=== PATIENT | female | born 1940 | race Caucasian/White ===

== ENCOUNTER 2022-04-05 02:13 | Observation (INO) | payer MEDICARE, SELFPAY ==
[2022-04-05] VITALS (10 sets, daily range): BP systolic 108–153; BP diastolic 58–85; PULSE 65–110; RESP 20–26; TEMP 36.3–36.9; O2SAT 93–97; BMI 14.7
--- NOTE | 2022-04-05 02:24 | PC.NURSE ---
PT ARRIVED TO FLOOR VIA STRETCHER @ [id number].
--- NOTE | 2022-04-05 02:58 | XR_ITS ---
PROCEDURE INFORMATION: Exam: XR Chest Exam date and time: 04/05/2022 3:20 AM Age: 82 years old Clinical indication: Cough; Sternal or substernal pain; Additional info: Chest pain, cough TECHNIQUE: Imaging protocol: Radiologic exam of the chest. Views: 1 view. COMPARISON: No relevant prior studies available. FINDINGS: Lungs: Well aerated with no evidence of consolidations. Emphysematous changes and chronic bilateral interstitial thickening. Subcentimeter calcified granuloma on the lateral aspect of the right lung base. Pleural spaces: No evidence of effusions or pneumothorax. Heart/Mediastinum: The cardiomediastinal silhouette is normal in size and configuration. There is no evidence of cardiomegaly. Bones/joints: Intact. IMPRESSION: 1. No radiographic evidence of an acute pulmonary process. 2. Emphysematous changes and chronic bilateral interstitial thickening.
--- NOTE | 2022-04-05 03:04 | EXP.HP ---
History of Present Illness *Admission Date: 04/05/22 *Reason for visit:: Abnormal CTA chest, Chest pain *History of present illness: Ms. Barrera is a 82-year-old female with a past medical history that is positive for CHF, CAD, and Hypothyroidism. She presents to [facility] as a transfer from [facility] for Pulmonary evaluation for an abnormal CTA of the chest, per transferring facility CTA of the chest shows areas of pleural thickening, bronchiectasis, effusions and consolidations. Covid testing and Flu testing at the transferring facility were negative. EKG showed a Sinus Arrhythmia with no ST segment elevation or depression, Troponin x 2 at transferring facility were negative. The patient presented to the facility due to chest pain that started on the left substernal portion of the chest that was associated with a productive cough, the symptoms started the day prior to presentation. The transferring facility requested that she be sent for Pulmonary evaluation and recommendations. [facility] Medical History Congestive heart failure COPD (chronic obstructive pulmonary disease) History of chest pain History of left heart catheterization (LHC) History of left heart catheterization (LHC) Family History Other Family history of myocardial infarction Social History Smoking Status: Never smoker alcohol intake: never current occupational status: disabled Travel in the last 8 weeks: None marital status: number of children: 4 well-balanced diet: rarely or never Review of Systems Review of Systems Review of systems:: pertinent systems reviewed and negative unless documented below Constitutional Constitutional: Reports system reviewed and no additional complaints, except as documented Eyes Eyes: Reports system reviewed and no additional complaints, except as documented ENT Ears, Nose, Mouth, and Throat: Reports system reviewed and no additional complaints, except as documented *Cardiovascular Cardiovascular: Reports chest pain, Reports dyspnea and Reports dyspnea on exertion *Respiratory Respiratory: Reports cough, Reports dyspnea and Reports dyspnea on exertion *Gastrointestinal Gastrointestinal: Reports system reviewed and no additional complaints, except as documented *Genitourinary Genitourinary: Reports system reviewed and no additional complaints, except as documented *Musculoskeletal Musculoskeletal: Reports system reviewed and no additional complaints, except as documented Integumentary/Breasts Skin/Breast: Reports system reviewed and no additional complaints, except as documented *Neurologic Neurologic: Reports system reviewed and no additional complaints, except as documented Psychiatric Psychiatric: Reports system reviewed and no additional complaints, except as documented Endocrine Endocrine: Reports system reviewed and no additional complaints, except as documented Hematologic/Lymphatic Hematologic/Lymphatic: Reports system reviewed and no additional complaints, except as documented Allergic/Immunologic Allergic/Immunologic: Reports system reviewed and no additional complaints, except as documented Meds Home Medications and Allergies Home Medications Medication Instructions Recorded Confirmed Type aspirin 81 mg tablet 81 mg PO DAILY Heart failure 04/05/22 04/05/22 History digoxin 125 mcg (0.125 mg) tablet 125 mcg PO DAILY Heart failure 04/05/22 04/05/22 History levothyroxine 50 mcg tablet 50 mcg PO DAILY hypothyroidism 04/05/22 04/05/22 History montelukast 10 mg tablet 10 mg PO DAILY allergies 04/05/22 04/05/22 History sacubitril 24 mg-valsartan 26 mg 1 tab PO BID Heart failure 04/05/22 04/05/22 History tablet (Entresto) New Prescriptions to Start Prescriptions: Allergies Allergy/AdvReac Type Severity
[2022-04-05 03:33] LABS: Basophils # 0.1 K/mm3 (0-0.2); Basophils % 1.2 % (0.1-2.0); Eosinophils # 0.1 K/mm3 (0.0-0.4); Eosinophils % 1.2 % (0.1-12.0); Hematocrit 36.8 % (37.0-47.0); Hemoglobin 11.7 g/dL (12.2-16.2); Lymphocytes # 2.1 K/mm3 (0.7-4.5); Lymphocytes % 25.9 % (10-50); Mean Corpuscular HGB Conc 31.9 g/dL (31.8-35.4); Mean Corpuscular Hemoglobin 31.1 pg (27.0-31.2); Mean Corpuscular Volume 97.7 fl (81-99); Mean Platelet Volume 7.3 fl (7.4-10.4); Monocytes # 0.6 K/mm3 (0.1-1.0); Monocytes % 7.5 % (1.7-9.3); Neutrophils # 5.2 K/mm3 (1.8-7.8); Neutrophils % 64.1 % (37.0-80.0); Platelet Count 406 K/mm3 (142-424); Red Blood Count 3.77 M/mm3 (4.20-5.40); Red Cell Distribution Width 14.9 % (11.5-17.5); White Blood Count 8.2 K/mm3 (4.8-10.8)
[2022-04-05 03:35] LABS: Chloride 96 mmol/L (98-107); Sodium 132 mmol/L (136-145)
[2022-04-05 03:36] LABS: Potassium 4.3 mmoL/L (3.5-5.1)
[2022-04-05 03:38] LABS: Alanine Aminotransferase 19 U/L (12-78); Alkaline Phosphatase 109 U/L (38-126); Aspartate Amino Transferase 30 U/L (14-36); Bilirubin,Total 0.4 mg/dl (0.2-1.3); Blood Urea Nitrogen 12 mg/dl (7-17); Creatinine Clearance Estimated 25 mL/min (50-200); Estimated Glomerular Filt Rate 95 ml/min (>60); GFR (African American) 115 ML/MIN (>60)
[2022-04-05 03:39] LABS: Albumin Level 3.4 g/dl (3.5-5.0); Albumin/Globulin Ratio 1.1 (1.1-1.8); Anion Gap 11.3 mEq/L (5-15); Calcium 9.1 mg/dl (8.4-10.2); Carbon Dioxide 29 mmol/L (22.0-30.0); Glucose 92 mg/dl (74-100); Magnesium 1.7 mg/dl (1.6-2.3); Total Protein,Serum 6.4 g/dl (6.3-8.2)
[2022-04-05 03:51] LABS: Adenovirus,PCR Not Detected (NotDetected); Bordetella Pertussis Not Detected (NotDetected); Chlamydophila Pneumoniae, PCR Not Detected (NotDetected); Coronavirus 19, PCR Not Detected (NotDetected); Coronavirus 229E Not Detected (NotDetected); Coronavirus NL63 Not Detected (NotDetected); Coronavirus OC43 Not Detected (NotDetected); Coronovirus HKU1,PCR Not Detected (NotDetected); Human Metapneumovirus Not Detected (NotDetected); Influenza A, PCR Not Detected (NotDetected); Influenza AH1, 2009 Not Detected (NotDetected); Influenza AH1, PCR Not Detected (NotDetected); Influenza AH3,PCR Not Detected (NotDetected); Influenza B, PCR Not Detected (NotDetected); Mycoplasma Pneumoniae, PCR Not Detected (NotDetected); Parainfluenza 1, PCR Not Detected (NotDetected); Parainfluenza 2, PCR Not Detected (NotDetected); Parainfluenza 3, PCR Not Detected (NotDetected); Parainfluenza 4, PCR Not Detected (NotDetected); Respiratory Syncytial Virus Not Detected (NotDetected); Rhinovirus/Enterovirus Not Detected (NotDetected)
[2022-04-05 03:54] LABS: Troponin I < 0.01 ng/ml (0.00-0.034)
[2022-04-05 04:16] LABS: NT Pro Brain Natriuretic Pep. 1990 pg/mL (0-450)
--- NOTE | 2022-04-05 06:19 | PC.NURSE ---
Pt is alert and oriented to person, place, and situation. Unable to state year, month, president or age. Pt bilat lower lobes diminished, tolerating RA well with sats in mid 90s. Call light within reach.
--- NOTE | 2022-04-05 07:04 | HMH.PHAINT1 ---
Pharmacy Intervention Comments: Medication reconciliation completed via external fill history and patient interview. -Rosamaria Gooden, PharmD Candidate 2022
--- NOTE | 2022-04-05 07:49 | PC.NURSE ---
Sputum cup left at bedside. Pt verbalizes understanding for need for sample and to call out when collected.
--- NOTE | 2022-04-05 09:18 | ECG_ITS ---
APPROVED REPORT Exam: Resting ECG HR:74 bpm ECG Measurements Heart Rate 74 AXES MI 149 P 46 QRSd 94 QRS -9 QT 392 T 64 QTc 419 Conclusion SINUS RHYTHM Left atrial abnormality Late r wave progression ABNORMAL ECG UNCONFIRMED REPORT Electronically signed by : Vic Daly MD 04/06/2022 21:16:05
--- NOTE | 2022-04-05 09:45 | EXP.PULM.CON ---
History of Present Illness History of present illness: Ms. Barrera is a 82-year-old female no significant smoking history, presented to outside hospital with worsening respiratory sounds and abnormal CAT scan was transferred to [facility] for further evaluation. Patient admits chronic cough and worsening respiratory distress and productive phlegm. [facility] Medical History (Updated 04/05/22 @ 13:09 by Rolo Willis MD) Bronchiectasis Cavitary lesion of lung Congestive heart failure COPD (chronic obstructive pulmonary disease) History of chest pain History of left heart catheterization (LHC) History of left heart catheterization (LHC) Pleural thickening Pneumonia Family History Other Family history of myocardial infarction Social History Smoking Status: Never smoker alcohol intake: never current occupational status: disabled Travel in the last 8 weeks: None marital status: number of children: 4 well-balanced diet: rarely or never Review of Systems Constitutional Constitutional: Reports anorexia, Reports body ache(s), Reports fatigue and Reports lethargy Eyes Eyes: Denies eye discharge, Denies dry eyes, Denies irritation and Denies itchy eyes ENT Ears, Nose, Mouth, and Throat: Denies epistaxis, Denies facial pain, Denies lip swelling and Denies throat swelling *Cardiovascular Cardiovascular: Reports dyspnea and Reports dyspnea on exertion *Respiratory Respiratory: Reports chest congestion, Reports cough, Reports dyspnea, Reports dyspnea on exertion, Reports excessive phlegm production, Denies hemoptysis, Denies pain on inspiration, Denies pain with cough and Reports wheezing *Gastrointestinal Gastrointestinal: Denies abdominal pain, Denies belching and Denies cramping *Musculoskeletal Musculoskeletal: Reports back pain, Reports myalgias and Reports other (No small joint swelling or Pain) *Neurologic Neurologic: Reports system reviewed and no additional complaints, except as documented Psychiatric Psychiatric: Denies homicidal ideation and Denies suicidal ideation Endocrine Endocrine: Reports fatigue and Denies heat intolerance Hematologic/Lymphatic Hematologic/Lymphatic: Denies easy bleeding and Denies lymphadenopathy Allergic/Immunologic Allergic/Immunologic: Denies itchy eyes, Denies lip swelling, Denies throat swelling and Reports wheezing Pulmonology Exam Inpatient Vital signs and Labs for Last 24 Hours: Temp Pulse Resp BP Pulse Ox 97.8 F 71 24 124/68 95 04/05/22 04:00 04/05/22 09:32 04/05/22 04:00 04/05/22 04:00 04/05/22 06:09 Laboratory Results - last 24 hr 04/05/22 03:15: WBC 8.2, RBC 3.77 L, Hgb 11.7 L, Hct 36.8 L, MCV 97.7, MCH 31.1, MCHC 31.9, RDW 14.9, Plt Count 406, MPV 7.3 L, Neut % (Auto) 64.1, Lymph % (Auto) 25.9, Sebastian % (Auto) 7.5, Eos % (Auto) 1.2, Baso % (Auto) 1.2, Neut # (Auto) 5.2, Lymph # (Auto) 2.1, Sebastian # (Auto) 0.6, Eos # (Auto) 0.1, Baso # (Auto) 0.1 04/05/22 03:15: Sodium 132 L, Potassium 4.3, Chloride 96 L, Carbon Dioxide 29, Anion Gap 11.3, BUN 12, Creatinine 0.60, Estimated Creat Clear 25, Estimated GFR 95, Est GFR ( Amer) 115, Glucose 92, Calcium 9.1, Total Bilirubin 0.4, AST 30, ALT 19, Alkaline Phosphatase 109, Total Protein 6.4, Albumin 3.4 L, Globulin 3.0, Albumin/Globulin Ratio 1.1 04/05/22 03:15: NT-Pro-B Natriuret Pep 1990 H 04/05/22 03:15: Magnesium 1.7, Troponin I < 0.01 04/05/22 03:45: Chlamy pneumoniae PCR Not detected, Adenovirus (PCR) Not detected, B. pertussis DNA (PCR) Not detected, Coronavirus OC43 (PCR) Not detected, Coronavirus HKU1 (PCR) Not detected, Coronavirus 229E (PCR) Not detected, SARS-CoV-2 (PCR) Not detected, Coronavirus NL63 (PCR) Not detected, Human Metapneumovir PCR Not detected, Influenza A (H1) PCR Not detected, Influ A (H1N1/09) PCR Not detected, Influenza A (H3) PCR Not detected, Influenza Type A (PCR) No
[2022-04-05 10:40] LABS: Troponin I < 0.01 ng/ml (0.00-0.034)
[2022-04-05 13:39] LABS: C-Reactive Protein 22.6 mg/L (0-4)
[2022-04-05 13:44] LABS: Troponin I < 0.01 ng/ml (0.00-0.034)
[2022-04-05 16:15] LABS: Troponin I < 0.01 ng/ml (0.00-0.034)
--- NOTE | 2022-04-05 16:18 | HMH.SLDYSPHA ---
Speech & Language Evaluation Speech/Language Dysphagia Evaluation Start: 04/05/22 15:56 Freq: ONCE Status: Active Protocol: Document 04/05/22 15:57 KARYN (Rec: 04/05/22 16:17 [email or web address] [id number]) Dysphagia Assess/Goals/Plan Assessment Date of Evaluation: 04/05/22 Evaluation Type Initial Certification Assessment/Problems Pt assessed by clinical bedside swallow evaluation per MD order. Does Patient Qualify for Service Yes Qualify/Failure Comment No skilled speech therapy services warranted at this time 2' no overt s/sxs of aspiration. However, per hx of pna, KNOWLEDGE MANAGER will f/u on Friday to complete MBSS, if concerns arise over weekend. Recommendations PHYSICIAN CERTIFICATION: The specified therapy services are required, authorized, and reviewed every 30 days. Diet Recommendations normal w/ extra sauces/gravys Liquid Type Recommendations Normal/Thin SL Swallow Guidelines Alt bite w/sip thru meal, Standard Aspiration Prec. Crush Meds Small pills w/applesauce,Crush lge pills w/applesa Dysphagia Swallow Precautions/Strategies Sitting Upright (90 deg),Small Bites and Sips,Alternate Liquids/Solids Plan Pt/Guardian verbally ack understanding Yes of dx/prognosis/goals G -code Required No Education Instructions provided Discussed CSE results and continuation of current diet with pt, nursing, and care management who expressed understanding. Pt/Caregiver able to recall information Able to recall/restate Reinforcement needed No Speech & Language HPI History Present Illness Description of Patient Problem Per ER report, history, and patient interview: Ms. Barrera is a 82-year-old female with a past medical history that is positive for CHF, CAD, and Hypothyroidism, as well as hx of pna (self report of PNA 3x over six years.) She presents to [facility] as a transfer from [facility] for Pulmonary evaluation for an abnormal CTA of the chest, per transferring facility CTA of
--- NOTE | 2022-04-05 17:54 | PC.NURSE ---
pt has been resting most of shift. alert to self, place and situation. pt has a flat affect when speaking to. lung sounds diminished. non productive cough, was able to get 2 sputum specimens, sent to lab. tele shows NSR. cp and personal items within reach. no concerns voiced at this time.
[2022-04-05 18:27] LABS: Troponin I < 0.01 ng/ml (0.00-0.034)
[2022-04-05 22:16] LABS: Troponin I < 0.01 ng/ml (0.00-0.034)
[2022-04-06 01:00] VITALS: PULSE 90
[2022-04-06 04:00] VITALS: BP 126/64; PULSE 81; RESP 20; TEMP 36.4; O2SAT 96
[2022-04-06 04:11] VITALS: BMI 14.4
[2022-04-06 05:00] VITALS: PULSE 80
--- NOTE | 2022-04-06 06:03 | PC.NURSE ---
pt is alert and oriented X3. no acute changes since previous assessment. pt asked for something to help her sleep, CHIEF LIFESTYLE OFFICER gave hydroxyzine, pt refused to take it. she stated that she would just try to go to sleep on her own. CB in reach.
[2022-04-06 08:00] VITALS: BP 106/49; PULSE 89; PULSE 90; RESP 24; TEMP 36.6; O2SAT 93; O2SAT 95
[2022-04-06 08:08] LABS: Basophils # 0.1 K/mm3 (0-0.2); Basophils % 0.7 % (0.1-2.0); Eosinophils # 0.2 K/mm3 (0.0-0.4); Eosinophils % 2.4 % (0.1-12.0); Hematocrit 31.5 % (37.0-47.0); Hemoglobin 10.3 g/dL (12.2-16.2); Lymphocytes # 1.8 K/mm3 (0.7-4.5); Mean Corpuscular HGB Conc 32.5 g/dL (31.8-35.4); Mean Corpuscular Hemoglobin 31.4 pg (27.0-31.2); Mean Corpuscular Volume 96.5 fl (81-99); Mean Platelet Volume 7.9 fl (7.4-10.4); Monocytes # 0.7 K/mm3 (0.1-1.0); Monocytes % 7.7 % (1.7-9.3); Neutrophils # 5.9 K/mm3 (1.8-7.8); Neutrophils % 68.1 % (37.0-80.0); Platelet Count 397 K/mm3 (142-424); Red Blood Count 3.27 M/mm3 (4.20-5.40); Red Cell Distribution Width 14.8 % (11.5-17.5); White Blood Count 8.6 K/mm3 (4.8-10.8)
[2022-04-06 08:17] LABS: Anion Gap 12.7 mEq/L (5-15); Blood Urea Nitrogen 19 mg/dl (7-17); Calcium 8.3 mg/dl (8.4-10.2); Carbon Dioxide 30 mmol/L (22.0-30.0); Chloride 95 mmol/L (98-107); Creatinine Clearance Estimated 24 mL/min (50-200); Estimated Glomerular Filt Rate 95 ml/min (>60); GFR (African American) 115 ML/MIN (>60); Glucose 104 mg/dl (74-100); Potassium 4.7 mmoL/L (3.5-5.1); Sodium 133 mmol/L (136-145)
--- NOTE | 2022-04-06 10:20 | EXP.DC.SUM ---
General Admission date:: 04/05/22 Discharge date: 04/06/22 HPI HPI HPI: Ms. Barrera is a 82-year-old female with a past medical history that is positive for CHF, CAD, and Hypothyroidism. She presents to [facility] as a transfer from [facility] for Pulmonary evaluation for an abnormal CTA of the chest, per transferring facility CTA of the chest shows areas of pleural thickening, bronchiectasis, effusions and consolidations. Covid testing and Flu testing at the transferring facility were negative. EKG showed a Sinus Arrhythmia with no ST segment elevation or depression, Troponin x 2 at transferring facility were negative. The patient presented to the facility due to chest pain that started on the left substernal portion of the chest that was associated with a productive cough, the symptoms started the day prior to presentation. The transferring facility requested that she be sent for Pulmonary evaluation and recommendations. Hospital Course Hospital Course Hospital Course: 82-year-old female with past medical history of CAD, CHF, Hypothyroidism presents from an outlying facility for Pulmonary evaluation due to abnormal CTA of the chest. CT concerning for cavitary lesions. Review of records from outside facilities show diagnosis of MAC in 2019 at [facility]. Oxygen saturation remained stable in the 90s on room air during hospitalization. Pulmonology consulted, appreciate their recommendations. Problems addressed during hospitalization as follows: Bronchiectasis: Cavitary lung disease: Pneumonia: Pleural thickening: CTA from outside hospital reviewed showing large cavitary lesions, significant airway distortion and airspace disease? -likely chronic secondary to indolent Non-TB mycobacterial/fungal infections. Outside lab support MAC diagnosis. Sputum was collected during hospitalization. Culture and staining pending at time of discharge. Patient started on Augmentin, complete 14 days. We will have close follow-up with pulmonology in the outpatient setting for further work-up, possible bronchoscopy, further management. Chest Pain HFrEF CAD -EKG with no ST elevations. Troponins undetectable. Patient already on heart failure medications including Entresto, aspirin, digoxin. Continue current regimen. Echo obtained showing reduced EF as below. Chest pain consistent with musculoskeletal at this time she is tender in her left pectoralis muscle and this is where she keeps complaining of pain. No further inpatient management required. Able to obtain [facility]. Last echo we can find is from 2000, EF greater than 60%. Would like to establish with cardiology at [place]. We will have her follow-up as an outpatient. 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 Patient has lost significant weight over the past year. Findings consistent with Lady Geneva's syndrome . Started on supplements during hospitalization. Nutrition consulted. Recommend continued supplementation. Anticipate improvement with treatment of underlying infection. [facility] echocardiogram read by Dr. Joseph: ? Left?Ventricle: The left ventricular systolic function is moderately reduced.The LVEF is visually estimated at 35 - 40%. The diastolic function is abnormal. There is grade I diastolic dysfunction. The left ventricular filling pressure is normal. ? Right?Ventricle: The right ventricle is grossly normal in size. The right ventricular systolic function is not well visualized enough to be assessed. Right ventricular systolic pressure is normal (<35mmHg). The estimated RVSP is 26 mmHg. ? No significant mitral, aortic or tricuspid valve stenosis/regurgitation ? Pericardium: No pericardial effusion. ? There is no recent study available for direct [id number] comparison. Stable for discharge home. Needs close follow-up with cardiology
--- NOTE | 2022-04-06 11:19 | PC.NURSE ---
sputum sample obtained x2 and sent to lab
[2022-04-06 12:00] VITALS: BP 100/62; PULSE 79; PULSE 90; RESP 22; TEMP 36.6; O2SAT 94
--- NOTE | 2022-04-06 15:00 | PC.NURSE ---
discharge education completed. pt verbalized understanding of all medications and follow up appts. Saline lock removed. Tele removed.
--- NOTE | 2022-04-08 15:47 | CARE MANAGER ---
Spoke with patient for post-discharge phone interview, patient states that she still feels bad has follow-up appointment wiht pulmonology. No needs at this time.
[2022-04-09 19:17] LABS: QuantiFERON-TB Gold Plus Negative (Negative)
[2022-04-10 16:14] LABS: Aspergillus flavus Negative (Neg:<1:1); Aspergillus fumigatus Negative (Neg:<1:1); Aspergillus niger Negative (Neg:<1:1); Blastomyces Antibody Negative (Neg:<1:1)
== END 2022-04-06 16:00 | disposition home or self-care (01) ==
PROVIDERS: Internal Medicine Pulmonary Disease; Nurse Practitioner Family; Admitting Provider Internal Medicine Adolescent Medicine; PCP Family Medicine; Visit Provider Internal Medicine Adolescent Medicine
DX: J18.9 Pneumonia, unspecified organism (principal); E43 Unspecified severe protein-calorie malnutrition; Z68.1 Body mass index [BMI] 19.9 or less, adult; J47.9 Bronchiectasis, uncomplicated; J92.9 Pleural plaque without asbestos; I25.10 Atherosclerotic heart disease of native coronary artery without angina pectoris; E03.9 Hypothyroidism, unspecified; J98.4 Other disorders of lung; Z79.899 Other long term (current) drug therapy; I50.9 Heart failure, unspecified; A31.0 Pulmonary mycobacterial infection; Z20.822 Contact with and (suspected) exposure to COVID-19
CPT/HCPCS: G0378; G0379; 36415; 71045; 80048; 80053; 83735; 83880; 84484; 85025; 86140; 86480; 86606; 86612; 87070; 87077; 87116; 87186; 87205; 87206; 87220; 87581; 87632; 87798; 92610; 93005; 93306; C9803; U0003; U0005